=== PATIENT | female | born 1990 | race African-American/Black ===

== ENCOUNTER 2022-02-05 14:47 | Emergency (ER) | payer MEDICAID ==
[~2022-02-05] VITALS: Ht 157.5 cm; Wt 56.8 kg
[~2022-02-05 14:47] MED LIST: DEPO-PROVER400 MG/ML IM; NORCO 325 MG-51 TAB PO; OMNICEF 300MG300 MG PO; PYRIDIUM200 M1 PO
[2022-02-05 15:36] VITALS: BP 112/75; PULSE 69; TEMP 98.3
[2022-02-05 17:18] LABS: BASO % 0.6 % (0.0-2.0); EOS # 0.2 K/mm3 (0.0-0.7); EOS % 2.9 % (0.0-4.0); GRAN # 4.4 K/mm3 (1.4-6.5); GRAN % 60.8 % (42.2-75.2); LYMPH # 1.9 K/mm3 (1.2-3.4); LYMPH % 26.3 % (20.0-51.0); MEAN CELL VOLUME 76 fl (80.0-100.0); MEAN CORPUSCULAR HEMOGLOBIN 23 pg (27-31); MEAN CORPUSCULAR HGB CONC 31 g/dl (33.0-37.0); MEAN PLATELET VOLUME 10.9 fl (7.4-10.4); MONO # 0.7 K/mm3 (0.1-0.6); MONO % 9.1 % (1.7-9.3); PLATELET COUNT 226 K/mm3 (130-400); RED BLOOD COUNT 4.28 M/mm3 (4.10-5.30); REDCELL DISTRIBUTION WIDTH-CV 16.5 % (11.5-14.5)
[2022-02-05 17:20] LABS: HEMATOCRIT 32.5 % (37.0-47.0)
[2022-02-05 17:34] LABS: ALBUMIN 4.5 gm/dL (3.5-5.0); CALCIUM 9.7 mg/dL (8.4-10.2); CREATININE, serum 0.75 mg/dL (0.57-1.11); POTASSIUM 3.7 mmol/L (3.5-4.5); TOTAL PROTEIN 8.5 gm/dL (6.2-8.1)
[2022-02-05] MEDS ORDERED: NATURAL IRON65 MG PO (18:24)
== END 2022-02-05 18:35 | disposition home or self-care (01) ==
LOC: COL.ER 14:47
PROVIDERS: Personal Emergency Response Attendant
DX: D64.9 Anemia, unspecified (principal); F17.200 Nicotine dependence, unspecified, uncomplicated; Z28.310 Unvaccinated for COVID-19

== ENCOUNTER 2024-02-19 15:07 | Emergency (ER) | payer MEDICAID ==
[~2024-02-19] VITALS: Ht 157.5 cm; Wt 57.7 kg
[~2024-02-19 15:07] MED LIST changes: +NATURAL IRON65 MG PO
[2024-02-19 15:11] VITALS: TEMP 99.9
[2024-02-19] MEDS ORDERED: NS 1,000 ML IV ONE (15:30)
[2024-02-19] MEDS ORDERED: Ondansetron 4 MG/2 ML VIAL IV PRN (15:30)
[2024-02-19 15:46] LABS: BASO % 0.8 % (0.0-2.0); EOS # 0.2 K/mm3 (0.0-0.7); EOS % 3.1 % (0.0-4.0); GRAN # 2.4 K/mm3 (1.4-6.5); LYMPH # 1.7 K/mm3 (1.2-3.4); LYMPH % 34.4 % (20.0-51.0); MEAN CELL VOLUME 71 fl (80.0-100.0); MEAN CORPUSCULAR HGB CONC 29 g/dl (33.0-37.0); MEAN PLATELET VOLUME 10.8 fl (7.4-10.4); MONO # 0.6 K/mm3 (0.1-0.6); MONO % 11.5 % (1.7-9.3); PLATELET COUNT 241 K/mm3 (130-400); RED BLOOD COUNT 3.67 M/mm3 (4.10-5.30); REDCELL DISTRIBUTION WIDTH-CV 19.2 % (11.5-14.5)
[2024-02-19 15:47] LABS: HEMATOCRIT 25.9 % (37.0-47.0); HEMOGLOBIN 7.5 g/dl (12.5-16.0); MEAN CORPUSCULAR HEMOGLOBIN 20 pg (27-31)
[2024-02-19 15:58] LABS: ALBUMIN 4.1 g/dL (3.5-5.0); BILIRUBIN,TOTAL 0.6 mg/dL (0.2-1.2); CALCIUM 9.4 mg/dL (8.4-10.2); CREATININE, serum 0.71 mg/dL (0.57-1.11); POTASSIUM 3.5 mEq/L (3.5-4.5); TOTAL PROTEIN 7.2 g/dl (6.2-8.1)
[2024-02-19] MEDS ORDERED: IRON TABLETS325 MG PO (16:20)
[2024-02-19 16:25] VITALS: BP 131/60; PULSE 60
== END 2024-02-19 16:35 | disposition home or self-care (01) ==
LOC: COL.ER 15:07
PROVIDERS: Personal Emergency Response Attendant
DX: R42 Dizziness and giddiness (principal); D64.9 Anemia, unspecified
CPT/HCPCS: J2405; J7030